=== PATIENT | female | born 1985 | race Caucasian/White ===

== ENCOUNTER 2023-04-30 09:01 | Day surgery (SDC) | payer OTHER ==
[2023-04-25 09:05] LABS: BASOPHILS # (AUTO) 0.04 K/uL (0.00-0.20); BASOPHILS % (AUTO) 0.5 % (0.0-5.0); EOSINOPHILS # (AUTO) 0.26 K/uL (0.00-0.70); HEMATOCRIT 40.3 % (36-48); IMMATURE GRANULOCYTE ABSOLUTE 0.02 K/uL (0-1); LYMPHOCYTES % (AUTO) 34.1 % (21.0-51.0); MEAN CORPUSCULAR HEMOGLOBIN 29.7 pg (27.0-33.0); MEAN CORPUSCULAR HGB CONC 32.3 g/dL (32.0-36.0); MEAN CORPUSCULAR VOLUME 92.2 fL (79-99); MONOCYTES # (AUTO) 0.6 K/uL (0.1-1.0); MONOCYTES % (AUTO) 6.7 % (3.0-13.0); NEUTROPHILS # (AUTO) 4.9 K/uL (1.8-7.7); NEUTROPHILS % (AUTO) 55.5 % (40.0-77.0); PLATELET COUNT (AUTO) 320 K/uL (130-400); RED BLOOD CELL COUNT(AUTO) 4.37 MIL/uL (4.00-5.50); RED CELL DISTRIBUTION WIDTH 12.5 % (11.0-15.5); WHITE BLOOD COUNT (AUTO) 8.8 K/uL (4.8-10.8)
[2023-04-25 09:07] VITALS: BP 117/83; PULSE 59; RESP 17
[2023-04-25 09:15] LABS: CREATININE 0.6 mg/dL (0.5-1.5); POTASSIUM 3.9 mmol/L (3.5-5.1)
[2023-04-30] VITALS (15 sets, daily range): BP systolic 110–124; BP diastolic 56–80; PULSE 62–89; RESP 15–21
[~2023-04-30] VITALS: Ht 152.4 cm; Wt 79.7 kg
[2023-04-30] MEDS ORDERED: LACTATED RINGERS 1000ML 1,000 ML IV ONE (10:29)
[2023-04-30] MEDS ORDERED: PROPOFOL 10 MG/ML 20ML VIAL IV ONE (11:53)
[2023-04-30] MEDS ORDERED: MIDAZOLAM HCL 1 MG/ML 2ML VIAL ONE (11:53)
[2023-04-30] MEDS ORDERED: FENTANYL CITRATE PF 50 MCG/1 ML 2ML VIAL ONE (11:53)
[2023-04-30] MEDS ORDERED: ROCURONIUM BROMIDE 10MG/1ML 5ML VL ONE (11:58)
[2023-04-30] MEDS ORDERED: NEOSTIGMINE 5MG/5ML SYR IV ONE (12:41)
[2023-04-30] MEDS ORDERED: GLYCOPYRROLATE 1 MG/5 ML SYRINGE ONE (12:41)
[2023-04-30] MEDS ORDERED: SUGAMMADEX SODIUM 200 MG/2 ML VIAL IV ONE (12:51)
[2023-04-30] MEDS ORDERED: ONDANSETRON 4MG INJ ONE (13:54)
== END 2023-04-30 14:30 | disposition home or self-care (01) ==
LOC: DAH 09:01
PROVIDERS: ATTEND Obstetrics & Gynecology
DX: N84.0 Polyp of corpus uteri (principal); N94.6 Dysmenorrhea, unspecified; F41.9 Anxiety disorder, unspecified; E66.9 Obesity, unspecified; Z68.34 Body mass index [BMI] 34.0-34.9, adult; Z80.9 Family history of malignant neoplasm, unspecified; Z83.3 Family history of diabetes mellitus; Z82.5 Family history of asthma and other chronic lower respiratory diseases; Z82.49 Family history of ischemic heart disease and other diseases of the circulatory system
CPT/HCPCS: 80048; 84703; 85025; 36415; 58558; 88305; 81025; A6260; A4663; J7030; A4351; A4355; J7120; J3010; J3490 ×2; J2710; J2250; J2704; J2405; A4215; A4223; A4222; A4221; A4600